=== PATIENT | female | born 1980 | race American Indian/Alaskan Native ===

== ENCOUNTER 2016-07-04 12:28 | Emergency (ER) | payer MEDICAID ==
[2016-07-04 12:45] VITALS: BP 123/77
[2016-07-04] MEDS ORDERED: DUONEB 0.5 MG-3 MG/3 ML SOLN IH ONE (12:52)
--- NOTE | 2016-07-04 12:56 | Emergency Department Report ---
ED Asthma HPI - General Chief Complaint: Adult Asthma Stated Complaint: COUGH/CONGESTION Time Seen by Provider: 07/04/16 12:49 Source: patient Mode of arrival: Ambulatory Limitations: No Limitations - History of Present Illness Initial Comments: Pt reports URI sx x 2 days. No fevers. States she has had increased wheezing and SOB. Hx of childhood asthma. No recent travel. MD Complaint: shortness of breath, wheezing -: Gradual, days(s) (2) Asthma History: childhood onset Severity: mild Context: recent URI Associated Symptoms: productive cough. denies: fever, chest pain, hemoptysis, leg edema, syncope - Related Data Current Asthma Therapy: none Previous Rx's Medication Instructions Recorded Last Taken Type ALBUTEROL Inhaler [ProAir HFA 2 puff IH QID PRN #200 inhalation 07/04/16 Unknown Rx Inhaler] ALBUTEROL NEB's [Proventil 0.083% 2.5 mg IH QID #75 ml 07/04/16 Unknown Rx NEBS] methylPREDNISolone [Medrol] 4 mg PO DAILY #21 tab.ds.pk 07/04/16 Unknown Rx Allergies Allergy/AdvReac Type Severity Reaction Status Date / Time No Known Allergies Allergy Unverified 07/04/16 12:46 ED Review of Systems ROS: Stated complaint: COUGH/CONGESTION Other details as noted in HPI Comment: All other systems reviewed and negative Constitutional: denies: chills, fever Eyes: denies: eye pain, eye discharge, vision change ENT: congestion. denies: ear pain, throat pain Respiratory: cough, shortness of breath, wheezing Cardiovascular: denies: chest pain, palpitations Endocrine: no symptoms reported Gastrointestinal: denies: abdominal pain, nausea, diarrhea Genitourinary: denies: urgency, dysuria, discharge Musculoskeletal: denies: back pain, joint swelling, arthralgia Skin: denies: rash, lesions Neurological: denies: headache, weakness, paresthesias Psychiatric: denies: anxiety, depression Hematological/Lymphatic: denies: easy bleeding, easy bruising ED Past Medical Hx - Past Medical History Hx Asthma: Yes (CHILD) - Surgical History Past Surgical History?: No - Social History Smoking Status: Current Every Day Smoker Substance Use Type: Alcohol - Medications Home Medications: Home Medications Medication Instructions Recorded Confirmed Last Taken Type ALBUTEROL Inhaler [ProAir HFA 2 puff IH QID PRN #200 inhalation 07/04/16 Unknown Rx Inhaler] ALBUTEROL NEB's [Proventil 0.083% 2.5 mg IH QID #75 ml 07/04/16 Unknown Rx NEBS] methylPREDNISolone [Medrol] 4 mg PO DAILY #21 tab.ds.pk 07/04/16 Unknown Rx ED Physical Exam - General Limitations: No Limitations General appearance: alert, in no apparent distress - Head Head exam: Present: atraumatic, normocephalic - Eye Eye exam: Present: normal appearance - ENT ENT exam: Present: normal orophraynx, mucous membranes moist - Neck Neck exam: Present: normal inspection, full ROM - Respiratory Respiratory exam: Present: wheezes, decreased breath sounds. Absent: respiratory distress, accessory muscle use - Cardiovascular Cardiovascular Exam: Present: regular rate, normal rhythm. Absent: systolic murmur, diastolic murmur, rubs, gallop - GI/Abdominal GI/Abdominal exam: Present: soft, normal bowel sounds - Extremities Exam Extremities exam: Present: normal inspection - Back Exam Back exam: Present: normal inspection - Neurological Exam Neurological exam: Present: alert, oriented X3 - Psychiatric Psychiatric exam: Present: normal affect, normal mood - Skin Skin exam: Present: warm, dry, intact, normal color. Absent: rash ED Course Vital Signs 07/04/16 07/04/16 07/04/16 12:35 13:20 13:31 Temperature 98.1 F Pulse Rate 72 Pulse Rate [ 78 79 Bilateral Upper Lobe] Respiratory 22 Rate Respiratory 18 20 Rate [Bilateral Upper Lobe] Blood Pressure 123/77 O2 Sat by Pulse 100 Oximetry - Reevaluation(s) Reevaluation #1: 07/04/16 13:58 much improved with nebs. lungs essentially CTAB. NAD, stable for d/c. ED Medical Decision Making - Radiology Data Radiology results: report reviewed naf - Medical Decision Making Pt with asthma exacerbation due to viral URI. Will treat with albuterol and steroid. Follow up/return precautions given. - Differential Diagnosis uri, pna, asthma Critical care attestation.: If time is entered above; I have spent that time in minutes in the direct care of this critically ill patient, excluding procedure time. ED Disposition Clinical Impression: Asthma exacerbation Disposition: DISCHARGED TO HOME OR SELFCARE Is pt being admited?: No Condition: Stable Instructions: Asthma (ED) Prescriptions: ALBUTEROL Inhaler [ProAir HFA Inhaler] 2 puff IH QID PRN #200 inhalation PRN Reason: Shortness Of Breath ALBUTEROL NEB's [Proventil 0.083% NEBS] 2.5 mg IH QID #75 ml methylPREDNISolone [Medrol] 4 mg PO DAILY #21 tab.ds.pk Referrals: PRIMARY CARE, [Primary Care Provider] - 2-3 Days Forms: Work/School Release Form(ED) Time of Disposition: 14:01
--- NOTE | 2016-07-04 13:40 | XRay Report ---
ROUTINE CHEST, TWO VIEWS: HISTORY: Shortness of breath. The trachea, heart, mediastinal contour, lung lee and bony thorax are unremarkable. IMPRESSION: Unremarkable chest x-ray.
== END 2016-07-04 14:15 | disposition home or self-care (01) ==
LOC: ED 12:28
DX: J45.901 Unspecified asthma with (acute) exacerbation (principal); F17.200 Nicotine dependence, unspecified, uncomplicated
CPT/HCPCS: 71020; 94640; 96372; 99284; J2930

== ENCOUNTER 2018-08-07 12:11 | Emergency (ER) | payer MEDICAID ==
[2018-08-07] MEDS ORDERED: MORPHINE IV ONE ×2 (12:57→15:18)
[2018-08-07] MEDS ORDERED: ZOFRAN IV ONE (12:57)
[2018-08-07] MEDS ORDERED: NACL 0.9% 1000 ML 1,000 ML IV ONE (12:57)
[2018-08-07 13:11] LABS: Basophils % (Auto) 0.5 % (0.0-1.8); Eosinophils # (Auto) 0.2 K/mm3 (0.0-0.4); Eosinophils % (Auto) 2.8 % (0.0-4.3); Hematocrit 33.7 % (30.3-42.9); Hemoglobin 11.4 gm/dl (10.1-14.3); Lymphocytes # (Auto) 2.7 K/mm3 (1.2-5.4); Lymphocytes % (Auto) 30.5 % (13.4-35.0); Mean Corpuscular HGB Conc 34 % (30-34); Mean Corpuscular Volume 93 fl (79-97); Monocytes # (Auto) 0.6 K/mm3 (0.0-0.8); Platelet Count 338 K/mm3 (140-440); Red Blood Count 3.62 M/mm3 (3.65-5.03); Red Cell Distribution Width 13.2 % (13.2-15.2)
--- NOTE | 2018-08-07 13:29 | Emergency Department Report ---
ED HPI - General Chief complaint: Vaginal Bleeding Stated complaint: POSS MISCARRIAGE Time Seen by Provider: 08/07/18 12:49 Source: patient, old records reviewed Mode of arrival: Ambulatory Limitations: No Limitations - History of Present Illness Initial comments: 37-year-old female presents approximately 12 weeks complaining of vagin al bleeding since yesterday. Blood was initially brown in color but today patient felt her water break followed by bright red blood from vagina. She complains of suprapubic cramping similar to contractions that are moderate to severe in intensity. This is the patient's sixth , she has 2 living children, 2 miscarriages, one demise, and one elective . Patient was here on June 25 for vaginal bleeding in . O+ blood type, 6 week 0 day IUP with a low heart tones of 67 identified. Patient also had a small subchorionic hemorrhage. Patient since that visit repeat ultrasound showed improvement in heartbeat she has continued to follow-up with Migel Chavis othy [employer]. Patient prefers not to receive blood products for personal reasons (not yazdanism in nature) - Related Data Previous Rx's Medication Instructions Recorded Last Taken Type ALBUTEROL Inhaler (OR & NICU) 2 puff IH QID PRN #200 inhalation 07/04/16 Unknown Rx [ProAir HFA Inhaler] ALBUTEROL NEB's [Proventil 0.083% 2.5 mg IH QID #75 ml 07/04/16 Unknown Rx NEBS] methylPREDNISolone [Medrol] 4 mg PO DAILY #21 tab.ds.pk 07/04/16 Unknown Rx Vit No.130/Iron/Folic 1 each PO QDAY 30 Days #60 tablet 06/25/18 Unknown Rx [ Tablet] cephALEXin [Keflex] 500 mg PO Q12H 7 Days #14 cap 06/25/18 Unknown Rx HYDROcodone/APAP 5-325 [Effie 1 each PO Q6HR PRN #20 tablet 08/07/18 Unknown Rx 5/325] Ibuprofen [Motrin] 800 mg PO Q8HR PRN #30 tablet 08/07/18 Unknown Rx Misoprostol [Cytotec] 50 mcg PO ONCE #1 tablet 08/07/18 Unknown Rx Ondansetron [Zofran Odt] 4 mg PO Q8HR PRN #14 tab.rapdis 08/07/18 Unknown Rx Allergies Allergy/AdvReac Type Severity Reaction Status Date / Time No Known Allergies Allergy Verified 08/07/18 12:12 ED Review of Systems ROS: Stated complaint: POSS MISCARRIAGE Other details as noted in HPI Comment: All other systems reviewed and negative ED Past Medical Hx - Past Medical History Hx Asthma: Yes (CHILD) - Social History Smoking Status: Current Every Day Smoker Substance Use Type: None - Medications Home Medications: Home Medications Medication Instructions Recorded Confirmed Last Taken Type ALBUTEROL Inhaler (OR & NICU) 2 puff IH QID PRN #200 inhalation 07/04/16 Unknown Rx [ProAir HFA Inhaler] ALBUTEROL NEB's [Proventil 0.083% 2.5 mg IH QID #75 ml 07/04/16 Unknown Rx NEBS] methylPREDNISolone [Medrol] 4 mg PO DAILY #21 tab.ds.pk 07/04/16 Unknown Rx Vit No.130/Iron/Folic 1 each PO QDAY 30 Days #60 tablet 06/25/18 Unknown Rx [ Tablet] cephALEXin [Keflex] 500 mg PO Q12H 7 Days #14 cap 06/25/18 Unknown Rx HYDROcodone/APAP 5-325 [Effie 1 each PO Q6HR PRN #20 tablet 08/07/18 Unknown Rx 5/325] Ibuprofen [Motrin] 800 mg PO Q8HR PRN #30 tablet 08/07/18 Unknown Rx Misoprostol [Cytotec] 50 mcg PO ONCE #1 tablet 08/07/18 Unknown Rx Ondansetron [Zofran Odt] 4 mg PO Q8HR PRN #14 tab.rapdis 08/07/18 Unknown Rx ED Physical Exam - General Limitations: No Limitations - Other Other exam information: General: No limitations, patient is alert in no acute distress Head exam: Atraumatic, normocephalic Eyes exam: Normal appearance ENT: Moist mucous membrane, normal oropharynx Neck exam: Normal inspection, full range of motion, no meningismus nontender Respiratory exam: Clear to auscultation bilateral, no wheezes, rales, crackles Cardiovascular: Normal rate and rhythm, normal heart sounds Abdomen: Soft, nondistended, suprapubic tenderness, with normal bowel sounds, no rebound, or guarding Extremity: Full range of motion normal inspection no deformity Back: Normal Inspection, full range of motion, no tenderness Neurologic: Alert, oriented x3, cranial nerves intact, no motor or sensory deficit Psychiatric: normal affect, normal mood Skin: Warm, dry, intact ED Course Vital Signs 08/07/18 08/07/18 08/07/18 12:42 13:11 15:27 Temperature 98.0 F Pulse Rate 82 Respiratory 20 18 18 Rate Blood Pressure 127/62 Blood Pressure [Right] O2 Sat by Pulse 100 Oximetry 08/07/18 17:11 Temperature Pulse Rate 64 Respiratory 18 Rate Blood Pressure Blood Pressure 102/50 [Right] O2 Sat by Pulse 99 Oximetry - Consultations Consultation #1: 08/07/18 Case was discussed with Dr. Stallworth. Recommend Cytotec 50 g now and then and the repeat dose in 6 hours. Follow-up in the office recommended. ED Medical Decision Making - Lab Data Result diagrams: 08/07/18 12:56 Lab Results 08/07/18 08/07/18 08/07/18 Range/Units 12:56 12:56 12:56 WBC 8.8 (4.5-11.0) K/mm3 RBC 3.62 L (3.65-5.03) M/mm3 Hgb 11.4 (10.1-14.3) gm/dl Hct 33.7 (30.3-42.9) % MCV 93 (79-97) fl MCH 31 (28-32) pg MCHC 34 (30-34) % RDW 13.2 (13.2-15.2) % Plt Count 338 (140-440) K/mm3 Lymph % (Auto) 30.5 (13.4-35.0) % [place] % (Auto) 7.0 (0.0-7.3) % Eos % (Auto) 2.8 (0.0-4.3) % Baso % (Auto) 0.5 (0.0-1.8) % Lymph # 2.7 (1.2-5.4) K/mm3 [place] # 0.6 (0.0-0.8) K/mm3 Eos # 0.2 (0.0-0.4) K/mm3 Baso # 0.0 (0.0-0.1) K/mm3 Seg Neutrophils % 59.2 (40.0-70.0) % Seg Neutrophils # 5.2 (1.8-7.7) K/mm3 HCG, Quant 5106 H (0-4) mIU/mL Blood Type O POSITIVE Antibody Screen Negative - Radiology Data Radiology results: report reviewed ULTRASOUND OB LESS THAN 14 WEEKS FETUS ULTRASOUND OB TRANSVAGINAL History: Vaginal bleeding. Findings: Transabdominal and transvaginal ultrasound imaging was performed and compared to the exam dated 06/25/18. The uterus is anteverted and measures 13 x 6 x 7 cm. No obvious uterine fibroids are identified. No intrauterine is demonstrated on today's exam. The endometrial stripe is complex and thickened measuring up to 2.3 cm. The ovaries are normal size, contour and echotexture. No adnexal cyst or mass. No pelvic fluid collection. Impression: No intrauterine is visualized. The endometrium is thickened and complex concerning for spontaneous with retained products of conception. Please correlate with the patient's clinical presentation. - Medical Decision Making Patient presents to the ED with vaginal bleeding. HCG has dropped dramatically an IUP is no longer identified. Patient received Cytotec in the ED. No significant bleeding at this time. Pain control with morphine and Zofran. out patient follow-up will be encouraged - Differential Diagnosis miscarriage, threatened Critical Care Time: No Critical care attestation.: If time is entered above; I have spent that time in minutes in the direct care of this critically ill patient, excluding procedure time. ED Disposition Clinical Impression: Miscarriage Disposition: DC-01 TO HOME OR SELFCARE Is pt being admited?: No Does the pt Need Aspirin: No Condition: Stable Instructions: Spontaneous Miscarriage (ED) Additional Instructions: Take the medication as prescribed. Follow up with your doctor or the clinic/doctor provided. Return if symptoms worsen as indicated by your discharge instructions Prescriptions: Misoprostol [Cytotec] 50 mcg PO ONCE #1 tablet Ibuprofen [Motrin] 800 mg PO Q8HR PRN #30 tablet PRN Reason: Pain, Moderate (4-6) HYDROcodone/APAP 5-325 [Effie 5/325] 1 each PO Q6HR PRN #20 tablet PRN Reason: Pain , Severe (7-10) Ondansetron [Zofran Odt] 4 mg PO Q8HR PRN #14 tab.rapdis PRN Reason: Nausea And Vomiting Referrals: DEVIN STALLWORTH MD [Primary Care Provider] - 3-5 Days Time of Disposition: 17:17
--- NOTE | 2018-08-07 15:19 | Ultrasound Report ---
ULTRASOUND OB LESS THAN 14 WEEKS FETUS ULTRASOUND OB TRANSVAGINAL History: Vaginal bleeding. Findings: Transabdominal and transvaginal ultrasound imaging was performed and compared to the exam dated 06/25/18. The uterus is anteverted and measures 13 x 6 x 7 cm. No obvious uterine fibroids are identified. No intrauterine is demonstrated on today's exam. The endometrial stripe is complex and thickened measuring up to 2.3 cm. The ovaries are normal size, contour and echotexture. No adnexal cyst or mass. No pelvic fluid collection. Impression: No intrauterine is visualized. The endometrium is thickened and complex concerning for spontaneous with retained products of conception. Please correlate with the patient's clinical presentation.
[2018-08-07] MEDS ORDERED: CYTOTEC PO ONE (16:00)
[2018-08-07 17:12] VITALS: BP 102/50
== END 2018-08-07 18:00 | disposition home or self-care (01) ==
LOC: ED 12:11
DX: O03.9 Complete or unspecified spontaneous abortion without complication (principal); J45.909 Unspecified asthma, uncomplicated; O99.331 Smoking (tobacco) complicating pregnancy, first trimester; Z3A.12 12 weeks gestation of pregnancy
CPT/HCPCS: 36415; 76801; 76817; 84702; 85025; 86850; 86900; 86901; 88305; 96374; 96375; 96376; 99284; J2270; J2405; J7030

== ENCOUNTER 2019-08-22 20:12 | Emergency (ER) | payer MEDICAID ==
--- NOTE | 2019-08-22 20:17 | Emergency Department Report ---
Blank Doc - Documentation Documentation: 38-year-old female that presents with bilateral leg swelling. Patient is This initial assessment/diagnostic orders/clinical plan/treatment(s) is/are subject to change based on patient's health status, clinical progression and re- assessment by fellow clinical providers in the ED. Further treatment and workup at subsequent clinical providers discretion. Patient/guardians urged not to elope from the ED as their condition may be serious if not clinically assessed and managed. Initial orders include: 1- Patient sent to [facility] for further evaluation and treatment 2- labs 3- UA
[2019-08-22 21:06] LABS: Basophils % (Auto) 0.3 % (0.0-1.8); Eosinophils # (Auto) 0.2 K/mm3 (0.0-0.4); Eosinophils % (Auto) 1.3 % (0.0-4.3); Hematocrit 32.8 % (30.3-42.9); Lymphocytes # (Auto) 1.9 K/mm3 (1.2-5.4); Lymphocytes % (Auto) 11.4 % (13.4-35.0); Mean Corpuscular HGB Conc 34 % (30-34); Mean Corpuscular Volume 92 fl (79-97); Monocytes # (Auto) 0.7 K/mm3 (0.0-0.8); Monocytes % (Auto) 4.4 % (0.0-7.3); Platelet Count 365 K/mm3 (140-440); Red Blood Count 3.55 M/mm3 (3.65-5.03); Red Cell Distribution Width 12.8 % (13.2-15.2)
[2019-08-22 21:28] LABS: Alanine Aminotransferase 16 units/L (7-56); Albumin 3.3 g/dL (3.9-5); BUN/Creatinine Ratio 7; Blood Urea Nitrogen 4 mg/dL (7-17); Calcium 9.1 mg/dL (8.4-10.2); Hemolysis Index 2
[2019-08-22] MEDS ORDERED: ACETAMINOPHEN 325 MG/10.15 ML ORAL LIQD UNIT DOSE PO ONE (22:59)
[2019-08-22] MEDS ORDERED: CLINDAMYCIN 600 MG/50 mL 600 MG/50 ML BAG IV ONE (22:59)
[2019-08-22] MEDS ORDERED: predniSONE 20 MG TAB PO ONE (23:18)
[2019-08-22] MEDS ORDERED: DEXTROSE 5% IM ONE (23:45)
[2019-08-22] MEDS ORDERED: WATER IM ONE (23:45)
[2019-08-22] MEDS ORDERED: CLINDAMYCIN IM ONE (23:45)
--- NOTE | 2019-08-23 00:04 | Emergency Department Report ---
- General Chief complaint: Skin Rash Stated complaint: SPIDER BITE Time Seen by Provider: 08/22/19 20:12 Source: patient Mode of arrival: Wheelchair Limitations: No Limitations - History of Present Illness Initial comments: Patient is a 38-year-old female who presents the emergency room complaints of bilateral foot and ankle edema, pain, erythema that began 2 days ago. She state s that she believes she might have been bit by something in her boots. She did not see or feel anything bite her. She denies any itching or burning. She states that something similar occurred approximately 2 years ago and she states that she was staying in the same hotel during that time and believes that this is what is occurring again. Patient states that she is currently 5 months with twins. She states that she is receiving OB care at [facility] clinic. She denies any abdominal pain, back pain, vaginal bleeding, fever, nausea, vomiting, diarrhea. She states that she believes she also has a yeast infection as she is having vaginal itching and a small amount of white/thick vaginal discharge. She has not tried any hszb-oft-[id number] treatment. She denies any past medical history or allergies to medications. - Related Data Previous Rx's Medication Instructions Recorded Last Taken Type ALBUTEROL NEB's [Proventil 0.083% 2.5 mg IH QID #75 ml 07/04/16 Unknown Rx NEBS] Albuterol INH(or & Nicu Only) 2 puff IH QID PRN #200 inhalation 07/04/16 Unknown Rx [ProAir HFA Inhaler] methylPREDNISolone [Medrol] 4 mg PO DAILY #21 tab.ds.pk 07/04/16 Unknown Rx Vit No.130/Iron/Folic 1 each PO QDAY 30 Days #60 tablet 06/25/18 Unknown Rx [ Tablet] cephALEXin [Keflex] 500 mg PO Q12H 7 Days #14 cap 06/25/18 Unknown Rx HYDROcodone/APAP 5-325 [[place] 1 each PO Q6HR PRN #20 tablet 08/07/18 Unknown Rx 5/325] Ibuprofen [Motrin] 800 mg PO Q8HR PRN #30 tablet 08/07/18 Unknown Rx Misoprostol [Cytotec] 50 mcg PO ONCE #1 tablet 08/07/18 Unknown Rx Ondansetron [Zofran Odt] 4 mg PO Q8HR PRN #14 tab.rapdis 08/07/18 Unknown Rx Clindamycin [Clindamycin CAP] 450 mg PO TID 7 Days #63 capsule 08/23/19 Unknown Rx HYDROcodone/APAP 5-325 [[place] 1 each PO Q6HR PRN #10 tablet 08/23/19 Unknown Rx 5/325] Miconazole Nitrate [Miconazole 7] 45 gm VG QHS 7 Days #7 cream.appl 08/23/19 Unknown Rx cephALEXin [Keflex] 500 mg PO BID 7 Days #14 cap 08/23/19 Unknown Rx predniSONE [Deltasone] 40 mg PO QDAY 5 Days #10 tab 08/23/19 Unknown Rx Allergies Allergy/AdvReac Type Severity Reaction Status Date / Time No Known Allergies Allergy Verified 08/07/18 12:12 Abscess Boil HPI - HPI Chief Complaint: Skin Rash Stated Complaint: SPIDER BITE Time Seen by Provider: 08/22/19 20:12 Home Medications: Previous Rx's Medication Instructions Recorded Last Taken Type ALBUTEROL NEB's [Proventil 0.083% 2.5 mg IH QID #75 ml 07/04/16 Unknown Rx NEBS] Albuterol INH(or & Nicu Only) 2 puff IH QID PRN #200 inhalation 07/04/16 Unknown Rx [ProAir HFA Inhaler] methylPREDNISolone [Medrol] 4 mg PO DAILY #21 tab.ds.pk 07/04/16 Unknown Rx Vit No.130/Iron/Folic 1 each PO QDAY 30 Days #60 tablet 06/25/18 Unknown Rx [ Tablet] cephALEXin [Keflex] 500 mg PO Q12H 7 Days #14 cap 06/25/18 Unknown Rx HYDROcodone/APAP 5-325 [[place] 1 each PO Q6HR PRN #20 tablet 08/07/18 Unknown Rx 5/325] Ibuprofen [Motrin] 800 mg PO Q8HR PRN #30 tablet 08/07/18 Unknown Rx Misoprostol [Cytotec] 50 mcg PO ONCE #1 tablet 08/07/18 Unknown Rx Ondansetron [Zofran Odt] 4 mg PO Q8HR PRN #14 tab.rapdis 08/07/18 Unknown Rx Clindamycin [Clindamycin CAP] 450 mg PO TID 7 Days #63 capsule 03/23/20 Unknown Rx HYDROcodone/APAP 5-325 [[place] 1 each PO Q6HR PRN #10 tablet 08/23/19 Unknown Rx 5/325] Miconazole Nitrate [Miconazole 7] 45 gm VG QHS 7 Days #7 cream.appl 08/23/19 Unknown Rx cephALEXin [Keflex] 500 mg PO BID 7 Days #14 cap 08/23/19 Unknown Rx predniSONE [Deltasone] 40 mg PO QDAY 5 Days #10 tab 08/23/19 Unknown Rx Allergies/Adverse Reactions: Allergies Allergy/AdvReac Type Severity Reaction Status Date / Time No Known Allergies Allergy Verified 08/07/18 12:12 ED Review of Systems ROS: Stated complaint: SPIDER BITE Other details as noted in HPI Comment: All other systems reviewed and negative ED Past Medical Hx - Past Medical History Hx Asthma: Yes (CHILD) - Social History Smoking Status: Current Some Day Smoker - Medications Home Medications: Home Medications Medication Instructions Recorded Confirmed Last Taken Type ALBUTEROL NEB's [Proventil 0.083% 2.5 mg IH QID #75 ml 07/04/16 Unknown Rx NEBS] Albuterol INH(or & Nicu Only) 2 puff IH QID PRN #200 inhalation 07/04/16 Unkn own Rx [ProAir HFA Inhaler] methylPREDNISolone [Medrol] 4 mg PO DAILY #21 tab.ds.pk 07/04/16 Unknown Rx Vit No.130/Iron/Folic 1 each PO QDAY 30 Days #60 tablet 06/25/18 Unknown Rx [ Tablet] cephALEXin [Keflex] 500 mg PO Q12H 7 Days #14 cap 06/25/18 Unknown Rx HYDROcodone/APAP 5-325 [[place] 1 each PO Q6HR PRN #20 tablet 08/07/18 Unknown Rx 5/325] Ibuprofen [Motrin] 800 mg PO Q8HR PRN #30 tablet 08/07/18 Unknown Rx Misoprostol [Cytotec] 50 mcg PO ONCE #1 tablet 08/07/18 Unknown Rx Ondansetron [Zofran Odt] 4 mg PO Q8HR PRN #14 tab.rapdis 08/07/18 Unknown Rx Clindamycin [Clindamycin CAP] 450 mg PO TID 7 Days #63 capsule 08/23/19 Unknown Rx HYDROcodone/APAP 5-325 [[place] 1 each PO Q6HR PRN #10 tablet 08/23/19 Unknown Rx 5/325] Miconazole Nitrate [Miconazole 7] 45 gm VG QHS 7 Days #7 cream.appl 08/23/19 Unknown Rx cephALEXin [Keflex] 500 mg PO BID 7 Days #14 cap 08/23/19 Unknown Rx predniSONE [Deltasone] 40 mg PO QDAY 5 Days #10 tab 08/23/19 Unknown Rx ED Physical Exam - General Limitations: No Limitations General appearance: alert, in no apparent distress - Head Head exam: Present: atraumatic, normocephalic - Eye Eye exam: Present: normal appearance - ENT ENT exam: Present: mucous membranes moist - Respiratory Respiratory exam: Present: normal lung sounds bilaterally. Absent: respiratory distress, wheezes, rales, rhonchi, stridor, chest wall tenderness, accessory muscle use, decreased breath sounds, prolonged expiratory - Cardiovascular Cardiovascular Exam: Present: regular rate, normal rhythm, normal heart sounds. Absent: systolic murmur, diastolic murmur, rubs, gallop - GI/Abdominal GI/Abdominal exam: Present: soft. Absent: distended, tenderness, guarding, rebound, rigid - Extremities Exam Extremities exam: Present: other (edema present to the bilateral ankles to the toes, there is localized erythema present surrounding the ankles, there is increased warmth, FROM of the bilateral ankles, feet, and toes, neurovasculalry intact, no obvious sign of bite [place], no blistering, no calf ttp, no swelling up the legs) - Neurological Exam Neurological exam: Present: alert, oriented X3 - Psychiatric Psychiatric exam: Present: normal affect, normal mood - Skin Skin exam: Present: warm, dry ED Course Vital Signs 08/22/19 08/23/19 20:12 01:59 Temperature 98 F 97.9 F Pulse Rate 101 H 72 Respiratory 18 18 Rate Blood Pressure 144/88 127/89 [Left] O2 Sat by Pulse 100 100 Oximetry ED Medical Decision Making - Lab Data Result diagrams: 08/22/19 20:44 08/22/19 20:44 Lab Results 08/22/19 08/22/19 08/22/19 Range/Units 20:44 20:44 20:44 WBC 16.4 H (4.5-11.0) K/mm3 RBC 3.55 L (3.65-5.03) M/mm3 Hgb 11.0 (10.1-14.3) gm/dl Hct 32.8 (30.3-42.9) % MCV 92 (79-97) fl MCH 31 (28-32) pg MCHC 34 (30-34) % RDW 12.8 L (13.2-15.2) % Plt Count 365 (140-440) K/mm3 Lymph % (Auto) 11.4 L (13.4-35.0) % [place] % (Auto) 4.4 (0.0-7.3) % Eos % (Auto) 1.3 (0.0-4.3) % Baso % (Auto) 0.3 (0.0-1.8) % Lymph # 1.9 (1.2-5.4) K/mm3 [place] # 0.7 (0.0-0.8) K/mm3 Eos # 0.2 (0.0-0.4) K/mm3 Baso # 0.0 (0.0-0.1) K/mm3 Seg Neutrophils % 82.6 H (40.0-70.0) % Seg Neutrophils # 13.5 H (1.8-7.7) K/mm3 Sodium 136 L (137-145) mmol/L Potassium 3.4 L (3.6-5.0) mmol/L Chloride 101.5 (98-107) mmol/L Carbon Dioxide 20 L (22-30) mmol/L Anion Gap 18 mmol/L BUN 4 L (7-17) mg/dL Creatinine 0.6 L (0.7-1.2) mg/dL Estimated GFR > 60 ml/min BUN/Creatinine Ratio 7 % Glucose 120 H (65-100) mg/dL Calcium 9.1 (8.4-10.2) mg/dL Total Bilirubin 0.30 (0.1-1.2) mg/dL AST 18 (5-40) units/L ALT 16 (7-56) units/L Alkaline Phosphatase 67 (35-129) units/L NT-Pro-B Natriuret Pep 18.50 (0-450) pg/mL Total Protein 7.0 (6.3-8.2) g/dL Albumin 3.3 L (3.9-5) g/dL Albumin/Globulin Ratio 0.9 % HCG, Quant 50296 H (0-4) mIU/mL Urine Color (Yellow) Urine Turbidity (Clear) Urine pH (5.0-7.0) Ur Specific [place] (1.003-1.030) Urine Protein (Negative) mg/dL Urine Glucose (UA) (Negative) mg/dL Urine Ketones (Negative) mg/dL Urine Blood (Negative) Urine Nitrite (Negative) Urine Bilirubin (Negative) Urine Urobilinogen (<2.0) mg/dL Ur Leukocyte Esterase (Negative) Urine WBC (Auto) (0.0-6.0) /HPF Urine RBC (Auto) (0.0-6.0) /HPF U Epithel Cells (Auto) (0-13.0) /HPF Urine Bacteria (Auto) (Negative) /HPF Urine Mucus /HPF Urine Yeast (Budding) /HPF 08/22/19 Range/Units 23:15 WBC (4.5-11.0) K/mm3 RBC (3.65-5.03) M/mm3 Hgb (10.1-14.3) gm/dl Hct (30.3-42.9) % MCV (79-97) fl MCH (28-32) pg MCHC (30-34) % RDW (13.2-15.2) % Plt Count (140-440) K/mm3 Lymph % (Auto) (13.4-35.0) % [place] % (Auto) (0.0-7.3) % Eos % (Auto) (0.0-4.3) % Baso % (Auto) (0.0-1.8) % Lymph # (1.2-5.4) K/mm3 [place] # (0.0-0.8) K/mm3 Eos # (0.0-0.4) K/mm3 Baso # (0.0-0.1) K/mm3 Seg Neutrophils % (40.0-70.0) % Seg Neutrophils # (1.8-7.7) K/mm3 Sodium (137-145) mmol/L Potassium (3.6-5.0) mmol/L Chloride (98-107) mmol/L Carbon Dioxide (22-30) mmol/L Anion Gap mmol/L BUN (7-17) mg/dL Creatinine (0.7-1.2) mg/dL Estimated GFR ml/min BUN/Creatinine Ratio % Glucose (65-100) mg/dL Calcium (8.4-10.2) mg/dL Total Bilirubin (0.1-1.2) mg/dL AST (5-40) units/L ALT (7-56) units/L Alkaline Phosphatase (35-129) units/L NT-Pro-B Natriuret Pep (0-450) pg/mL Total Protein (6.3-8.2) g/dL Albumin (3.9-5) g/dL Albumin/Globulin Ratio % HCG, Quant (0-4) mIU/mL Urine Color Yellow (Yellow) Urine Turbidity Cloudy (Clear) Urine pH 5.0 (5.0-7.0) Ur Specific [place] 1.014 (1.003-1.030) Urine Protein <15 mg/dl (Negative) mg/dL Urine Glucose (UA) Neg (Negative) mg/dL Urine Ketones Neg (Negative) mg/dL Urine Blood Neg (Negative) Urine Nitrite Neg (Negative) Urine Bilirubin Neg (Negative) Urine Urobilinogen < 2.0 (<2.0) mg/dL Ur Leukocyte Esterase Lg (Negative) Urine WBC (Auto) 33.0 H (0.0-6.0) /HPF Urine RBC (Auto) 17.0 (0.0-6.0) /HPF U Epithel Cells (Auto) 17.0 H (0-13.0) /HPF Urine Bacteria (Auto) 1+ (Negative) /HPF Urine Mucus Few /HPF Urine Yeast (Budding) 2+ /HPF - Medical Decision Making Patient is a 38-year-old female who presents the emergency room complaints of bilateral foot and ankle edema, pain, erythema that began 2 days ago. She states that she believes she might have been bit by something in her boots. She did not see or feel anything bite her. She denies any itching or burning. She states that something similar occurred approximately 2 years ago and she states that she was staying in the same hotel during that time and believes that this is what is occurring again. Patient states that she is currently 5 months with twins. She states that she is receiving OB care at [facility]. She denies any abdominal pain, back pain, vaginal bleeding, fever, nausea, vomiting, diarrhea. She states that she believes she also has a yeast infection as she is having vaginal itching and a small amount of white/thick vaginal discharge. She has not tried any ycrx-jol-[id number] treatment. She denies any past medical history or allergies to medications. Vitals are stable. On exam: edema present to the bilateral ankles to the toes, there is localized erythema present surrounding the ankles, there is increased warmth, FROM of the bilateral ankles, feet, and toes, neurovasculalry intact, no obvious sign of bite [place]mond, no blistering, no calf ttp, no swelling up the legs. Labs significant for elevated white blood cell count at 16.4. UA shows evidence of UTI and yeast infection. Discussed exam findings with Dr. Nino Puentes, ER attending who evaluated patient at bedside and advised most likely cellulitis but could also be a gout versus pseudogout, advised to treat patient with antibiotics, steroids, [place]. Patient given clindamycin, prednisone, Tylenol in the emergency department. Patient given prescription for clindamycin, prednisone, [place], Keflex, miconazole. advised please use medication as prescribed. You need to have area reexamined within the next 3 da ys. Please follow-up with a primary care doctor to be reexamined. Please follow-up with your [facility] to discuss your UTI and yeast infection and to have urine retested for clearance. Return to the emergency room for any new or worsening symptoms including but not limited to high fever, increasing redness, increasing swelling, vomiting, etc. - Differential Diagnosis cellulitis, gout, pseudogout, arthritis Critical care attestation.: If time is entered above; I have spent that time in minutes in the direct care of this critically ill patient, excluding procedure time. ED Disposition Clinical Impression: Bilateral swelling of feet and ankles, Yeast infection Cellulitis Qualifiers: Site of cellulitis: extremity Site of cellulitis of extremity: lower extremity Laterality: unspecified laterality Qualified Code(s): L03.119 - Cellulitis of unspecified part of limb UTI (urinary tract infection) Qualifiers: Urinary tract infection type: acute cystitis Hematuria presence: without hematuria Qualified Code(s): N30.00 - Acute cystitis without hematuria Disposition: TO HOME OR SELFCARE Is pt being admited?: No Does the pt Need Aspirin: No Condition: Stable Instructions: Urinary Tract Infection in Women (ED), Cellulitis (ED), Vulvovaginal Candidiasis (ED) Additional Instructions: Please use medication as prescribed. You need to have area reexamined within the next 3 days. Please follow-up with a primary care doctor to be reexamined. Please follow-up with your [facility]RI[facility] to discuss your UTI and yeast infection and to have urine retested for clearance. Return to the emergency room for any new or worsening symptoms including but not limited to high fever, increasing redness, increasing swelling, vomiting, etc. Prescriptions: Miconazole Nitrate [Miconazole 7] 45 gm VG QHS 7 Days #7 cream.appl Clindamycin [Clindamycin CAP] 450 mg PO TID 7 Days #63 capsule predniSONE [Deltasone] 40 mg PO QDAY 5 Days #10 tab cephALEXin [Keflex] 500 mg PO BID 7 Days #14 cap HYDROcodone/APAP 5-325 [[place] 5/325] 1 each PO Q6HR PRN #10 tablet PRN Reason: Pain , Severe (7-10) Referrals: DEEPTI SANCHES MD [Staff Physician] - 2-3 Days [facility] [Provider Group] - 2-3 Days your, electric bath attendant [Other] - 2-3 Days [facility] [Outside] - 2-3 Days Time of Disposition: 01:02 Print Language: MONGOLIAN
[2019-08-23 00:22] LABS: Bacteria,Urine 1+ /HPF (Negative); Bilirubin,Urine NEG (Negative); Blood,Urine NEG (Negative); Color,Urine Yellow (Yellow); Mucus,Urine FEW /HPF; Protein,Urine <15 mg/dL mg/dL (Negative); Urobilinogen,Urine < 2.0 mg/dL (<2.0)
[2019-08-23 02:01] VITALS: BP 127/89
== END 2019-08-23 01:49 | disposition home or self-care (01) ==
LOC: ED 20:12
DX: L03.115 Cellulitis of right lower limb (principal); L03.116 Cellulitis of left lower limb; B37.9 Candidiasis, unspecified; N39.0 Urinary tract infection, site not specified
CPT/HCPCS: 36415; 80053; 81001; 83880; 84702; 85025; 87086; 96365; 96372; 99283; J7512

== ENCOUNTER 2020-01-12 16:16 | Inpatient (IN) | payer MEDICAID ==
[2020-01-12] MEDS ORDERED: MAGNESIUM SULFATE 4 GM/100 ML BAG IV ONE ×2 (17:28→21:00)
--- NOTE | 2020-01-12 17:34 | History and Physical Report ---
History of Present Illness Date of examination: 01/12/20 Date of admission: 01/12/20 16:38 History of present illness: PT was sent from office today 12 days pp with BPs of 150s/90s in the offce and c/o MERCER and "waves" in her vision. BPs have been higher here in L&D. Pt had no BP issues during the preg except at the time of admission on 12/31 for her delivery of twins. Past History Past Medical History: other (preeclampsia after her C/S 12 days ago. Also asthma and sickle cell trait.) Past Surgical History: section - Obstetrical History : 6 Medications and Allergies Allergies Allergy/AdvReac Type Severity Reaction Status Date / Time No Known Allergies Allergy Verified 08/07/18 12:12 Home Medications Medication Instructions Recorded Confirmed Last Taken Type ALBUTEROL NEB's [Proventil 0.083% 2.5 mg IH QID #75 ml 07/04/16 01/12/20 Unknown Rx NEBS] Albuterol Mdi (or & Nicu Only) 2 puff IH QID PRN #200 inhalation 07/04/16 01/12/20 Unknown Rx [ProAir HFA Inhaler] methylPREDNISolone [Medrol] 4 mg PO DAILY #21 tab.ds.pk 07/04/16 01/12/20 Unknown Rx Vit No.130/Iron/Folic 1 each PO QDAY 30 Days #60 tablet 06/25/18 01/12/20 Unknown Rx [ Tablet] cephALEXin [Keflex] 500 mg PO Q12H 7 Days #14 cap 06/25/18 01/12/20 Unknown Rx Misoprostol [Cytotec] 50 mcg PO ONCE #1 tablet 08/07/18 01/12/20 Unknown Rx Ondansetron [Zofran Odt] 4 mg PO Q8HR PRN #14 tab.rapdis 08/07/18 01/12/20 Unknown Rx Clindamycin [Clindamycin CAP] 450 mg PO TID 7 Days #63 capsule 08/23/19 01/12/20 Unknown Rx HYDROcodone/APAP 5-325 [[place] 1 each PO Q6HR PRN #10 tablet 08/23/19 01/12/20 01/11/20 19:00 Rx 5/325] Miconazole Nitrate [Miconazole 7] 45 gm VG QHS 7 Days #7 cream.appl 08/23/19 01/12/20 Unknown Rx cephALEXin [Keflex] 500 mg PO BID 7 Days #14 cap 08/23/19 01/12/20 Unknown Rx predniSONE [Deltasone] 40 mg PO QDAY 5 Days #10 tab 08/23/19 01/12/20 Unknown Rx HYDROcodone/APAP 5-325 [[place] 1 each PO Q6HR PRN #30 tablet 01/01/20 01/12/20 01/11/20 19:00 Rx 5-325 mg TAB] Ibuprofen [Motrin 800 MG tab] 800 mg PO Q8HR PRN #30 tablet 01/01/20 01/12/20 Unknown Rx Ferrous Sulfate [Feosol 325 MG tab] 325 mg PO BID 30 Days #60 tablet 01/04/20 01/12/20 Unknown Rx Hydrocodone-Acetamin 10-325/15 1 tab PO PRN PRN 01/12/20 01/12/20 01/11/20 19:00 History Active Meds: Active Medications Magnesium Sulfate (Magnesium Sulfate 4gm/100ml) 4 gm in 100 mls @ 300 mls/hr IV ONCE ONE Stop: 01/12/20 17:47 Magnesium Sulfate (Magnesium Sulfate 40gm/1000ml) 40 gm in 1,000 mls @ 50 mls/hr IV DIRECT JADON Stop: 01/13/20 18:00 Review of Systems All systems: negative (except HPI) Results All other labs normal. Assessment and Plan - Patient Problems (1) Preeclampsia in period Current Visit: Yes Status: Acute Plan to address problem: Will give MGSO4 for 24 hrs. Labetalol 100 mg po BID started. Plan d/w pt. All questions answered.
[2020-01-12] MEDS ORDERED: MAGNESIUM SULFATE 40GM/1000ML 40 GM/1,000 ML BAG IV SCH (18:00)
[2020-01-12] MEDS: LACTATED RINGERS 1,000 ML IV SCH (21:00)
[2020-01-13] MEDS ORDERED: ACETAMINOPHEN 500 MG TAB PO PRN (10:00)
[2020-01-13] MEDS: LACTATED RINGERS 1,000 ML IV SCH (10:49)
[2020-01-13 12:43] VITALS: BP 109/61
--- NOTE | 2020-01-13 13:03 | Progress Note ---
Assessment and Plan severe preeclampsia: -Started on magnesium per protocol -Tylenol as needed for headache -Monitor blood pressures as routine Monitor for signs and symptoms of severe preeclampsia Dispo pending resolution of symptoms and 24 hours of magnesium - Patient Problems (1) Preeclampsia in period Onset Date: ~01/12/20 Current Visit: Yes Status: Acute Subjective - Subjective Date of service: 01/13/20 Principal diagnosis: severe preeclampsia Interval history: Presented with MERCER and elevated BPs yesterday. Started on Mag for seizure ppx. MERCER improved, now currently 4-5/10. Otherwise well and meeting goals. Denies scotoma or RUQ pain. Normal lochia. Tolerating po. Baby doing well at home. /pumping. Objective - Vital Signs Vital Signs: Vital Signs - 12hr 01/13/20 01/13/20 01/13/20 01:42 02:42 03:42 Temperature Pulse Rate 72 75 81 Respiratory Rate Blood Pressure 147/72 131/67 147/71 Blood Pressure [Right] 01/13/20 01/13/20 01/13/20 04:42 05:42 06:42 Temperature Pulse Rate 89 72 68 Respiratory Rate Blood Pressure 115/67 122/62 132/79 Blood Pressure [Right] 01/13/20 01/13/20 01/13/20 07:34 07:35 07:42 Temperature 97.4 F L Pulse Rate 72 72 71 Respiratory 16 Rate Blood Pressure 136/80 129/76 Blood Pressure 136/80 [Right] 01/13/20 01/13/20 01/13/20 08:42 09:42 10:32 Temperature Pulse Rate 74 83 83 Respiratory Rate Blood Pressure 137/70 121/67 121/67 Blood Pressure [Right] 01/13/20 01/13/20 01/13/20 10:42 11:42 12:09 Temperature 97.6 F Pulse Rate 77 77 77 Respiratory 16 Rate Blood Pressure 105/54 105/53 Blood Pressure 105/53 [Right] 01/13/20 12:42 Temperature Pulse Rate 74 Respiratory Rate Blood Pressure 109/61 Blood Pressure [Right] - Exam Breasts: deferred Cardiovascular: Regular rate Lungs: Clear to auscultation Abdomen: Present: normal appearance, other (fundus firm) Extremities: normal Deep Tendon Reflex Grade: Normal +2 - Labs Labs: Abnormal Labs 01/13/20 01/13/20 01/13/20 01:37 09:02 11:39 Magnesium 4.40 H 5.20 H 8.70 H Laboratory Results - last 24 hr 01/13/20 01/13/20 01/13/20 01:37 09:02 11:39 Magnesium 4.40 H 5.20 H 8.70 H
--- NOTE | 2020-01-13 14:15 | Event Note ---
Date: 01/13/20 Patient desiring to leave against mendical advice for childcare reason. Expressing understanding of leaving against medical advice and signed forms. Informed patient that she can return at any time for further management of preeclampsia in period.
== END 2020-01-13 14:15 | disposition left against medical advice (07) | DRG 776 ==
LOC: UNDOADMIN 16:16 → 3A 16:16 → LD 16:38
PROVIDERS: ADMIT Obstetrics & Gynecology; ATTEND Obstetrics & Gynecology
DX: O14.95 Unspecified pre-eclampsia, complicating the puerperium (principal); O99.53 Diseases of the respiratory system complicating the puerperium; O99.03 Anemia complicating the puerperium; D57.3 Sickle-cell trait; J45.909 Unspecified asthma, uncomplicated; Z53.29 Procedure and treatment not carried out because of patient's decision for other reasons
CPT/HCPCS: 36415; 83735; G0378; J3475; J7120

== ENCOUNTER 2020-11-18 16:54 | Outpatient (CLI) | payer OTHER, MEDICAID ==
[2020-11-18 18:14] VITALS: BP 112/65
[2020-11-18] MEDS ORDERED: LACTATED RINGERS 500 ML IV ONE (18:21)
--- NOTE | 2020-11-18 19:33 | Ultrasound Report ---
ULTRASOUND BIOPHYSICAL PROFILE INDICATION / CLINICAL INFORMATION: bpp/jovan. COMPARISON: None available. FINDINGS: BREATHING MOVEMENT = 2 GROSS BODY MOVEMENT = 2 TONE = 2 QUALITATIVE AMNIOTIC FLUID VOLUME = 2 TOTAL BIOPHYSICAL SCORE = 8/8 AMNIOTIC FLUID INDEX (cm) = 17.2 PRESENTATION: Variable HEART RATE (beats per minute): 137 IMPRESSION: 1. Single viable intrauterine with heart rate measuring 137 bpm. 2. biophysical profile = 8/8 3. JOVAN measures 17.2 cm, within normal limits. Signer Name: Ethan Lanza MD Signed: 11/18/2020 7:29 PM Workstation Name: [id number]
== END 2020-11-18 19:06 | disposition home or self-care (01) ==
LOC: TRG 16:54 → APU 16:55 → TRG 19:06
PROVIDERS: ATTEND Obstetrics & Gynecology
DX: O09.893 Supervision of other high risk pregnancies, third trimester (principal); Z3A.31 31 weeks gestation of pregnancy
CPT/HCPCS: 76815; 76819